=== PATIENT | male | born 1940 | race Caucasian/White ===

== ENCOUNTER 2021-08-17 06:47 | Emergency (ER) | payer MEDICARE ==
[~2021-08-17] VITALS: Ht 177.8 cm; Wt 89.4 kg
[2021-08-17] MEDS ORDERED: [UNRECOGNIZED DRUG - OTHER] (07:03)
[2021-08-17] MEDS ORDERED: LIPITOR20 MG PO (07:04)
[2021-08-17] MEDS ORDERED: ALLOPURINOL300 MG PO (07:04)
[2021-08-17] MEDS ORDERED: VAZALORE81 MG PO (07:04)
[2021-08-17] MEDS ORDERED: FLOMAX0.4 MG PO (07:05)
[2021-08-17] MEDS ORDERED: MECLIZINE HCL25 MG PO (07:53)
--- NOTE | 2021-08-17 19:10 | EKG ---
[facility] [address] [facility] [place], [place] [address] Signed Sinus rhythm with 1st degree AV block Right bundle branch block Abnormal ECG No previous ECGs available Confirmed by ROHIT NGUYEN MD ([id number] on 08/17/2021 7:10:25 PM Electronically Signed By: ROHIT NGUYEN MD 08/17/211909 PATIENT NAME: ROSARIO GUERRA Electrocardiogram DATE OF : 44 PHYSICIAN: ROHIT NGUYEN MD REPORT #: [id number] REPORT IS CONFIDENTIAL AND NOT TO BE RELEASED WITHOUT AUTHORIZATION
== END 2021-08-17 08:07 | disposition home or self-care (01) ==
LOC: ED 06:47
DX: H81.10 Benign paroxysmal vertigo, unspecified ear (principal); I10 Essential (primary) hypertension; Z79.899 Other long term (current) drug therapy; Z79.82 Long term (current) use of aspirin; Z88.1 Allergy status to other antibiotic agents
CPT/HCPCS: 93005; 93010; 99284-25